=== PATIENT | female | born 1965 | race Caucasian/White ===

== ENCOUNTER → 2017-09-27 | Outpatient (CLI) | payer BC | LOC: FIMAGING 08:03 | PROVIDERS: ATTEND Family Medicine | DX: Z12.31 Encounter for screening mammogram for malignant neoplasm of breast (principal) ==

== ENCOUNTER → 2017-10-12 | Outpatient (CLI) | payer BC | LOC: FIMAGING 11:16 | PROVIDERS: ATTEND Family Medicine | DX: R92.8 Other abnormal and inconclusive findings on diagnostic imaging of breast (principal) ==

== ENCOUNTER 2018-01-03 17:00 | Emergency (ER) | payer BC ==
--- NOTE | 2018-01-03 17:21 | EDPHY ---
H & P Stated Complaint: r abd/ r flank pain Time Seen by Provider: 01/03/18 17:21 HPI/ROS: CHIEF COMPLAINT: Right flank and abdominal pain HISTORY OF PRESENT ILLNESS: The patient presents to the ED with complaints of acute right flank and abdominal pain that began earlier today. The patient denies any hematuria or dysuria. She was seen at urgent care and received an injection of Toradol. She was discharged home with [place] and a muscle relaxant which she has been taking today without improvement of her symptoms. The patient reports that her symptoms began acutely this morning. She denies prior history of nephrolithiasis ureterolithiasis. She denies any vomiting or diarrhea. The patient reports her pain is moderate to severe in nature and worsened with movement. She is unable to find a position of comfort. REVIEW OF SYSTEMS: A comprehensive 10 point review of systems is otherwise negative aside from elements mentioned in the history of present illness. Source: Patient Exam Limitations: No limitations - Personal History LMP (Females 10-55): Post Menopausal Current Tetanus Diphtheria and Acellular Pertussis (TDAP): Yes Tetanus Vaccine Date: 2010 - Medical/Surgical History Hx Asthma: No Hx Chronic Respiratory Disease: No Hx Diabetes: No Hx Cardiac Disease: No Hx Renal Disease: No Hx Cirrhosis: No Hx Alcoholism: No Hx HIV/AIDS: No Hx Splenectomy or Spleen Trauma: No Other PMH: TBI - Social History Smoking Status: Current some day smoker - Physical Exam Exam: General Appearance: Alert, mild discomfort secondary to pain Eyes: Pupils equal and round no pallor or injection ENT, Mouth: Mucous membranes moist Respiratory: There are no retractions, lungs are clear to auscultation Cardiovascular: Regular rate and rhythm Gastrointestinal: Minimal tenderness to palpation right mid quadrant Back: Right CVA tenderness, mild Neurological: 5/5 strength all 4 extremities Skin: Warm and dry, no rashes Musculoskeletal: Neck is supple nontender, right sacroiliac tenderness to palpation Extremities: symmetrical, full range of motion Constitutional: Initial Vital Signs Temperature (C) 36.4 C 01/03/18 17:09 Heart Rate 75 01/03/18 17:09 Respiratory Rate 18 01/03/18 17:09 Blood Pressure 134/79 H 01/03/18 17:09 O2 Sat (%) 100 01/03/18 17:09 O2 Delivery Mode Room Air Allergies/Adverse Reactions: cephalexin [Cephalexin] Allergy (Verified 01/03/18 17:08) Hives povidone-iodine [From Betadine] Allergy (Verified 01/03/18 17:08) Rash soap [From Betadine] Allergy (Verified 01/03/18 17:08) Rash Home Medications: Medication Instructions Recorded Herbal/Supplement See Comments 12/19/11 Hydrocodone Bit/Acetaminophen 1 tab PO Q4-6PRN 12/19/11 [Vicodin 5/500] Ibuprofen [Motrin 200 mg (OTC)] 600 mg PO Q4-6PRN PRN 12/19/11 Magnesium Oxide [Magnesium Oxide 400 mg PO DAILY 12/19/11 400 mg (OTC)] Cyclobenzaprine 01/03/18 Lidocaine [Lidoderm] 1 each TP AD PRN #15 adh..patch 01/03/18 Medical Decision Making - Diagnostics Imaging Results: Imaging Impressions Abdomen/Pelvis CT 01/03/18 17:33 Impression: 1. Bilateral nonobstructive nephrolithiasis, with the largest calyceal calculus lower pole right kidney, measuring 11 x 8 mm. 2. However, no hydronephrosis or nephrolithiasis. 3. Mild atherosclerotic aorta, without aneurysm. 4. Prior appendectomy, without bowel obstruction. Attention: This CT examination is specifically designed to evaluate patients who are clinically suspected of having acute obstructive uropathy. This examination does not use radiographic contrast, and as such, provides only a limited evaluation of the abdomen, pelvis, and retroperitoneum. If there is further clinical suspicion for pathological conditions other than obstructive uropathy, a complete CT evaluation of the abdomen and pelvis utilizing intravenous, oral, and rectal contrast should be considered. Findings and recommendations discussed with Emergency Department physician, Milton Winkler M.D., at 1755 hours, on January 03, 2018. Final report concurs with initial preliminary interpretation. ED Course/Re-evaluation: The patient presents to the ED for evaluation of right mid abdominal pain, flank pain and back pain. The patient was seen at urgent care earlier today and treated with muscle relaxants, narcotic medications an injection of Toradol. She presents to the ED today complaining of worsening symptoms. The patient arrived in appeared to be uncomfortable. She had an IV established. She received additional 15 mg of Toradol once I verified a normal renal function and morphine. Further workup was performed in the emergency department included a CT scan of the abdomen and pelvis which demonstrated no evidence of ureterolithiasis or obvious explanation for acute right flank and back pain. The patient's laboratory studies and urinalysis are within normal limits. Her LFTs are normal. The patient has a prior history of appendectomy. The patient presents to the ED with pain which is likely musculoskeletal in nature. She will be given a prescription for lidocaine patch in addition to her muscle relaxants and [place]. The patient did participate in physical therapy yesterday which may have exacerbated her symptoms. I do feel the patient can be discharged home with customary aftercare instructions and return precautions. Differential Diagnosis: Differential diagnosis considered includes ureterolithiasis, pyelonephritis, nephrolithiasis, myofascial strain, abdominal aortic aneurysm, cholelithiasis - Data Points Laboratory Results: Laboratory Results 01/03/18 17:26 01/03/18 17:26 01/03/18 01/03/18 01/03/18 17:34 17:26 17:26 WBC RBC Hgb POC Hgb 16.0 gm/dL gm/dL (12.6-16.3) Hct POC Hct 47 % % (38-47) MCV MCH MCHC RDW Plt Count MPV Neut % (Auto) Lymph % (Auto) [place] % (Auto) Eos % (Auto) Baso % (Auto) Nucleat RBC Rel Count Absolute Neuts (auto) Absolute Lymphs (auto) Absolute Monos (auto) Absolute Eos (auto) Absolute Basos (auto) Absolute Nucleated RBC Immature Gran % Immature Gran # POC Sodium 137 mEq/L mEq/L (135-145) Sodium 138 mEq/L mEq/L (135-145) POC Potassium 3.7 mEq/L mEq/L (3.3-5.0) Potassium 4.1 mEq/L mEq/L (3.3-5.0) POC Chloride 100 mEq/L mEq/L (97-110) Chloride 100 mEq/L mEq/L (97-110) Carbon Dioxide 24 mEq/l mEq/l (22-31) Anion Gap 14 mEq/L mEq/L (8-16) POC BUN 14 mg/dL mg/dL (7-23) BUN 14 mg/dL mg/dL (7-23) Creatinine 0.8 mg/dL mg/dL (0.6-1.0) POC Creatinine 0.9 mg/dL mg/dL (0.6-1.0) Estimated GFR > 60 Glucose 84 mg/dL mg/dL (70-100) POC Glucose 88 mg/dL mg/dL (70-100) Calcium 10.0 mg/dL mg/dL (8.5-10.4) Total Bilirubin 0.7 mg/dL mg/dL (0.1-1.4) Conjugated Bilirubin 0.4 mg/dL mg/dL (0.0-0.5) Unconjugated Bilirubin 0.3 mg/dL mg/dL (0.0-1.1) AST 24 IU/L IU/L (14-46) ALT 38 IU/L IU/L (9-52) Alkaline Phosphatase 73 IU/L IU/L (38-126) Total Protein 7.1 g/dL g/dL (6.3-8.2) Albumin 4.5 g/dL g/dL (3.5-5.0) Urine Color Urine Appearance Urine pH Ur Specific [place] Urine Protein Urine Ketones Urine Blood Urine Nitrate Urine Bilirubin Urine Urobilinogen Ur Leukocyte Esterase Urine Glucose 01/03/18 01/03/18 17:26 17:15 WBC 12.93 10^3/uL H 10^3/uL (3.80-9.50) RBC 4.89 10^6/uL 10^6/uL (4.18-5.33) Hgb 15.4 g/dL g/dL (12.6-16.3) POC Hgb Hct 43.3 % % (38.0-47.0) POC Hct MCV 88.5 fL fL (81.5-99.8) MCH 31.5 pg pg (27.9-34.1) MCHC 35.6 g/dL g/dL (32.4-36.7) RDW 12.6 % % (11.5-15.2) Plt Count 245 10^3/uL 10^3/uL (150-400) MPV 10.3 fL fL (8.7-11.7) Neut % (Auto) 57.3 % % (39.3-74.2) Lymph % (Auto) 34.6 % % (15.0-45.0) [place] % (Auto) 5.3 % % (4.5-13.0) Eos % (Auto) 1.9 % % (0.6-7.6) Baso % (Auto) 0.4 % % (0.3-1.7) Nucleat RBC Rel Count 0.0 % % (0.0-0.2) Absolute Neuts (auto) 7.42 10^3/uL H 10^3/uL (1.70-6.50) Absolute Lymphs (auto) 4.47 10^3/uL H 10^3/uL (1.00-3.00) Absolute Monos (auto) 0.69 10^3/uL 10^3/uL (0.30-0.80) Absolute Eos (auto) 0.24 10^3/uL 10^3/uL (0.03-0.40) Absolute Basos (auto) 0.05 10^3/uL 10^3/uL (0.02-0.10) Absolute Nucleated RBC 0.00 10^3/uL 10^3/uL (0-0.01) Immature Gran % 0.5 % % (0.0-1.1) Immature Gran # 0.06 10^3/uL 10^3/uL (0.00-0.10) POC Sodium Sodium POC Potassium Potassium POC Chloride Chloride Carbon Dioxide Anion Gap POC BUN BUN Creatinine POC Creatinine Estimated GFR Glucose POC Glucose Calcium Total Bilirubin Conjugated Bilirubin Unconjugated Bilirubin AST ALT Alkaline Phosphatase Total Protein Albumin Urine Color PALE YELLOW Urine Appearance CLEAR Urine pH 6.0 (5.0-7.5) Ur Specific [place] 1.006 (1.002-1.030) Urine Protein NEGATIVE (NEGATIVE) Urine Ketones TRACE H (NEGATIVE) Urine Blood NEGATIVE (NEGATIVE) Urine Nitrate NEGATIVE (NEGATIVE) Urine Bilirubin NEGATIVE (NEGATIVE) Urine Urobilinogen NEGATIVE EU EU (0.2-1.0) Ur Leukocyte Esterase NEGATIVE (NEGATIVE) Urine Glucose NEGATIVE (NEGATIVE) Medications Given: Discontinued Medications Morphine Sulfate (Morphine) 6 mg IVP EDNOW ONE Stop: 01/03/18 17:26 Last Admin: 01/03/18 17:32 Dose: 6 mg Point of Care Test Results: 01/03/18 17:34 POC Sodium 137 POC Potassium 3.7 POC Chloride 100 POC BUN 14 POC Creatinine 0.9 POC Glucose 88 Departure - Departure Disposition: Home, Routine, Self-Care Clinical Impression: Low back pain Condition: Good Instructions: Acute Low Back Pain (ED) Additional Instructions: 1. Take Ibuprofen or Motrin 600 mg by mouth three times a day. 2. Continue [place] and muscle relaxants as prescribed. 3. Lidocaine patches as prescribed 4. Your CT scan, blood test and urine test demonstrates no acute abnormalities. Referrals: Jackie Montiel PA [Physician Health Promotion Coordinator] - As per Instructions Prescriptions: Lidocaine [Lidoderm] 1 each TP AD PRN #15 adh..patch PRN Reason: Pain, Breakthrough
[2018-01-03 17:49] LABS: PLATELET COUNT 245 10^3/uL (150-400)
[2018-01-03] MEDS: KETOROLAC 15 MG/1 ML SDV IVP ONE ×2 (17:56→19:26)
[2018-01-03 19:38] VITALS: BP 148/90
== END 2018-01-03 19:38 | disposition home or self-care (01) ==
DX: M54.5 Low back pain (principal); F17.200 Nicotine dependence, unspecified, uncomplicated
CPT/HCPCS: 82947-QW; 96374; J1885; J2270

== ENCOUNTER → 2019-01-10 | Outpatient (CLI) | payer BC | LOC: BMCIMAGING 08:12 ==